=== PATIENT | male | born 1960 | race Caucasian/White ===

== ENCOUNTER 2017-05-29 08:24 | Day surgery (SDC) | payer OTHER ==
[2017-05-29] MEDS ORDERED: PROPOFOL 10 MG/ML VIAL IV ONE (08:25)
[2017-05-29] MEDS ORDERED: LIDOCAINE 2% MDV (20MG/ML) 20ML VIAL IV ONE (08:25)
--- NOTE | 2017-06-02 10:30 | Operative Note ---
DATE OF SURGERY: 05/29/2017 SURGEON: Blanca Rubin MD OPERATION: COLONOSCOPY. INDICATIONS: This is a 57-year-old male with history of colon polyps who presented for surveillance colonoscopy. POSTOPERATIVE DIAGNOSES: 1. Grossly normal colon. 2. Suboptimal bowel preparation. ANESTHESIA: Sedation is per Anesthesia. Pulse oximetry was monitored throughout the procedure to maintain O2 saturation of 90% or greater. Supplemental oxygen was administered via nasal cannula. Cardiac and vital signs were monitored throughout the duration of the procedure, and they were stable. The procedure of colonoscopy and risks and alternatives of the procedure, including the risk of bleeding and perforation, among others, were explained to the patient who voiced understanding and agreed to have the procedure done. Physical examination was performed, and the patient was found stable for sedation. PROCEDURE: The patient was placed in the left lateral position. Sedation was initiated. A digital rectal exam was performed and showed some mild external hemorrhoids with no palpable rectal masses. An Olympus PCF-180AL colonoscope was then inserted into the rectum under direct visualization. It was advanced to the cecum without difficulty. The ileocecal valve and appendiceal orifice were identified and photographed. The colonic mucosa was carefully examined upon introduction of the colonoscope. There were no gross lesions noted. The bowel preparation was suboptimal with large stool residue in the sigmoid colon, descending colon, and ascending colon. The colonoscope was then withdrawn while carefully examining the colonic mucosal surfaces. No gross lesions were noted. In the rectum, retroflexion was performed and grade 1 internal hemorrhoids were noted. The colonoscope was then withdrawn and the procedure was terminated. The patient tolerated the procedure well without any immediate complications. He remained with stable vital signs and was transferred to the recovery room. RECOMMENDATIONS: 1. The patient should be on a high-fiber diet. 2. The patient is to have a repeat colonoscopy in about a year. Thank you for allowing me to participate in the care of your patient. CC: Arturo ALVAREZ
== END 2017-05-29 11:00 | disposition home or self-care (01) ==
LOC: HOP 08:24
PROVIDERS: ATTEND Internal Medicine Gastroenterology
DX: Z12.11 Encounter for screening for malignant neoplasm of colon (principal); Z86.010 Personal history of colon polyps; K64.8 Other hemorrhoids
CPT/HCPCS: 00810; G0105

== ENCOUNTER 2018-05-21 08:20 | Day surgery (SDC) | payer OTHER ==
[2018-05-21] MEDS ORDERED: PROPOFOL 10 MG/ML VIAL IV ONE (08:21)
[2018-05-21] MEDS ORDERED: LIDOCAINE 2% MDV (20MG/ML) 20ML VIAL IV ONE (08:21)
--- NOTE | 2018-05-26 11:40 | Operative Note ---
DATE OF SURGERY: 05/21/2018 SURGEON: Blanca Rubin MD OPERATION: COLONOSCOPY. INDICATIONS: This is a 57-year-old male with history of colon polyps who had surveillance colonoscopy in 2017 but poor bowel prep and now presented for repeat colonoscopy that also showed suboptimal bowel preparation. POSTOPERATIVE DIAGNOSIS: Suboptimal bowel prep with no gross lesions noted. ANESTHESIA: Sedation is per Anesthesia. Pulse oximetry was monitored throughout the procedure to maintain O2 saturation of 90% or greater. Supplemental oxygen was administered via nasal cannula. Cardiac and vital signs were monitored throughout the duration of the procedure, and they were stable. The procedure of colonoscopy and risks and alternatives of the procedure, including the risk of bleeding and perforation, among others, were explained to the patient who voiced understanding and agreed to have the procedure done. Physical examination was performed, and the patient was found stable for sedation. PROCEDURE: The patient was placed in the left lateral position. Sedation was initiated. A digital rectal exam was performed and showed some mild external hemorrhoids with no palpable rectal masses. An Olympus PCF-180AL colonoscope was then inserted into the rectum under direct visualization. It was advanced to the cecum without difficulty. The ileocecal valve and appendiceal orifice were identified and photographed. The colonic mucosa was carefully examined upon introduction of the colonoscope. There were no gross lesions noted. The bowel preparation was suboptimal and poor in some areas. The colonoscope was then withdrawn while carefully examining the colonic mucosal surfaces. No other lesions were noted. In the rectum, retroflexion was performed and grade 1 internal hemorrhoids were noted. The colonoscope was then withdrawn and the procedure was terminated. The patient tolerated the procedure well without any immediate complications. The patient remained with stable vital signs and was transferred to the recovery room. RECOMMENDATIONS: 1. The patient is to continue on high-fiber diet. 2. The patient is to have a repeat colonoscopy within 2 years with 2-day bowel preparation. Thank you for allowing me to participate in the care of your patient. CC: Dr. Arturo ALVAREZ
== END 2018-05-21 10:43 | disposition home or self-care (01) ==
LOC: HOP 08:20
PROVIDERS: ATTEND Internal Medicine Gastroenterology
DX: Z12.11 Encounter for screening for malignant neoplasm of colon (principal); Z86.010 Personal history of colon polyps
CPT/HCPCS: 00812; G0105